=== PATIENT | female | born 1960 ===

== ENCOUNTER 2017-03-19 05:44 | Day surgery (SDC) | payer BC ==
[~2017-03-19] VITALS: Ht 185.4 cm; Wt 108.9 kg
[2017-03-19] VITALS (9 sets, daily range): BP systolic 124–155; BP diastolic 71–83
[~2017-03-19 05:44] MED LIST: ASPIR 8181 MG ORAL; ATORVASTATIN CA20 MG ORAL; LOSARTAN POTASS50 MG ORAL
[2017-03-19] MEDS ORDERED: Zemuron 50mg/5ml Inj IV ONE (07:00)
[2017-03-19] MEDS ORDERED: Sterile Water Irrig 1000ml IRRIG ONE (07:00)
[2017-03-19] MEDS ORDERED: LR 1000ml ONE (07:00)
[2017-03-19] MEDS ORDERED: Midazolam 2mg/2ml Inj ONE (07:00)
[2017-03-19] MEDS ORDERED: fentaNYL 250mcg/5ml ONE (07:00)
[2017-03-19] MEDS ORDERED: Propofol 10mg/ml 20ml IV ONE (07:00)
[2017-03-19] MEDS ORDERED: NS Irrig 1000ml ONE (07:00)
[2017-03-19] MEDS ORDERED: Lidocaine 1% MPF 10mg/ml 5ml ONE (07:00)
[2017-03-19] MEDS ORDERED: Metoclopramide 10mg/2ml Inj ONE (07:00)
[2017-03-19] MEDS ORDERED: Ketorolac 30mg Inj ONE (07:00)
--- NOTE | 2017-03-19 07:07 | Anethesia Preoperative Eval ---
Anesthesia Pre-op PMH/ROS General Date of Evaluation: Mar 19, 2017 Anesthesiologist: Fan ASA Score: ASA 2 Mallampati Score Class I : Soft palate, uvula, fauces, pillars visible Class II: Soft palate, uvula, fauces visible Class III: Soft palate, base of uvula visible Class IV: Only hard plate visible Mallampati Classification: Class III Surgeon: Lc Diagnosis: Cholecystitis Surgical Procedure: Laparoscopic cholecystectomy Anesthesia History: none Family History: no anesthesia problems Allergies: Coded Allergies: No Known Allergies (Unverified , 03/18/17) Medications: see eMAR Past Medical History Cardiovascular: Reports: HTN, other - HLD, Denies: CAD, [place], arrhythmia, valve dz Pulmonary: Denies: COPD, KELLY, asthma, other Gastrointestinal/Genitourinary: Reports: GERD, Denies: CRI, ESRD, other Neurologic/Psychiatric: Denies: CVA, TIA, dementia, depression/anxiety, other Endocrine: Denies: DM, hypothyroidism, other, steroids HEENT: Denies: [place] (L), [place] (R), cataract (L), cataract (R), glaucoma, other Hematology/Immune: Denies: DVT, anemia, bleeding disorder, other Musculoskeletal/Integumentary: Denies: DDD, DJD, OA, RA, edema, other Other: obesity - morbid PSxH Narrative: right breast sx, VICKY Anesthesia Pre-op Phys. Exam Physician Exam Last Vital Signs Date Time Temp Pulse Resp B/P Pulse Ox O2 Delivery O2 Flow Rate FiO2 03/19/17 06:10 97.3 61 20 147/83 96 Room Air Constitutional: NAD Cardiovascular: RRR Respiratory: CTA Airway Exam Mallampati Score: Class III MO: limited ROM: limited Anesthesia Pre-op A/P Labs see chart Studies Pre-op Studies: EKG - sr Risk Assessment & Plan Assessment: ASA II Plan: GA Status Change Before Surgery: No Pre-Antibiotics Drug: Ancef 2g Given Within 1 Hr of Incision: MACIE Christiansen M.D. Mar 19, 2017 07:07
[2017-03-19] MEDS ORDERED: Bupivacaine w/Epi 0.5% 30ml Vial INJ ONE (07:12)
[2017-03-19] MEDS ORDERED: Iothalamate Meglumine 60% 30ML INJ ONE (07:12)
--- NOTE | 2017-03-19 07:17 | Pre-Procedure Note/Attestation ---
Pre-Procedure Note/Attestation Complete Prior to Procedure Procedure Narrative: laparoscopic cholecystectomy, possible open Indications for Procedure Pre-Operative Diagnosis: cholelithiasis, biliary colic, chronic cholecystitis Attestation I attest that I discussed the nature of the procedure; its benefits; risks and complications; and alternatives (and the risks and benefits of such alternatives ), prior to the procedure, with the patient (or the patient's legal insurance claim representative). I attest that, if there was a reasonable possibility of needing a blood transfusion, the patient (or the patient's legal insurance claim representative) was given the [facility] standardized written summary, pursuant to the Jatin Dieter Blood Safety Act ([place] Health and Safety Code # 1645, as amended). I attest that I re-evaluated the patient just prior to the surgery and that there has been no change in the patient's H&P, except as documented below: JEAN MARIE FOSTER Mar 19, 2017 07:17
--- NOTE | 2017-03-19 07:26 | Immediate Post-Op Evaluation ---
Immediate Post-Op Evalulation Immediate Post-Op Evalulation Procedure: Laparoscopic cholecystectomy Date of Evaluation: Mar 19, 2017 Time of Evaluation: 08:39 IV Fluids: 800 Blood Products: 0 Estimated Blood Loss: 0 Urinary Output: 0 Blood Pressure Systolic: 155 Blood Pressure Diastolic: 71 Pulse Rate: 82 Respiratory Rate: 16 O2 Sat by Pulse Oximetry: 96 Temperature (Fahrenheit): 97 Pain Score (1-10): 0 Nausea: No Vomiting: No Complications 0 Patient Status: awake, reacts, patent, none Hydration Status: adequate Drug: Ancef 2g Given Within 1 Hr of Incision: Yes Time Given: 07:30 MACIE PORTER M.D. Mar 19, 2017 07:26
[2017-03-19] MEDS ORDERED: LR 1000ml 1,000 ML IVLG SCH (07:27)
--- NOTE | 2017-03-19 07:27 | 48 Hour Post Anesthesia Eval ---
Post Anesthesia Evaluation Procedure: Laparoscopic cholecystectomy Date of Evaluation: Mar 19, 2017 Time of Evaluation: 09:46 Blood Pressure Systolic: 132 0: 76 Pulse Rate: 66 Respiratory Rate: 18 O2 Sat by Pulse Oximetry: 99 Airway: patent Nausea: No Vomiting: No Pain Intensity: 0 Hydration Status: adequate Cardiopulmonary Status: at [place] Mental Status/LOC: patient returned to baseline Post-Anesthesia Complications: 0 Follow-up care needed: ready to discharge MACIE PORTER M.D. Mar 19, 2017 07:27
[2017-03-19] MEDS ORDERED: DiphenhydrAMINE 50mg/ml Inj IVP PRN (07:30)
[2017-03-19] MEDS ORDERED: Hydromorphone 0.5mg/0.5ml inj IVP PRN (07:30)
[2017-03-19] MEDS ORDERED: Metoclopramide 10mg/2ml Inj IVP PRN (07:30)
[2017-03-19] MEDS ORDERED: fentaNYL 100 mcg/2 mL IV PRN (07:30)
[2017-03-19] MEDS ORDERED: Midazolam 2mg/2ml Inj IVP PRN (07:30)
[2017-03-19] MEDS ORDERED: Ketorolac 30mg Inj IV PRN (07:30)
[2017-03-19] MEDS ORDERED: LORazepam Inj 2mg/ml 1ml IV PRN (07:30)
--- NOTE | 2017-03-19 11:16 | Operative Note - Dictated ---
DATE OF OPERATION: 03/19/2017 SURGEON: Tulio Platt M.D. ENGINEER SERGEANT: Fazal Lowery M.D. ANESTHESIOLOGIST: Braulio Chavira M.D. ANESTHESIA: General endotracheal tube. PREOPERATIVE DIAGNOSIS: Cholelithiasis and chronic cholecystitis with biliary colic attacks recently. POSTOPERATIVE DIAGNOSIS: Cholelithiasis and chronic cholecystitis with biliary colic attacks recently. NAME OF OPERATION: Laparoscopic cholecystectomy. FINDINGS AND INDICATIONS: The patient is a very pleasant 56-year-old female with a history of intermittent abdominal pain in the epigastric and right upper quadrant, has been going on for a couple of years and she knew she had gallstones, but because of the crescendo symptoms, she came to see me for evaluation and gallbladder removal. I discussed the indications risks, benefits, possible complications, etc. and the patient consented to the operation. At the time of surgery a, indeed a slightly thickened gallbladder wall was found with a large stone approximately 2-1/2 cm in length and minimal adhesions of the gallbladder neck to the liver area, but no other sequela. The procedure was done uneventfully as described. DESCRIPTION OF PROCEDURE: With the patient lying in the supine position on the operating table, under general anesthesia with entire abdominal region, prepped and draped in usual sterile fashion with Betadine, an infraumbilical stab incision was made. The Veress needle was introduced and 4.5 liters of CO2 insufflated. The incision was then enlarged and a 5 mm trocar advanced through which a laparoscope was placed visualizing the above findings. A separate subxiphoid 11 mm trocar was placed and two 5-mm trocars in the right mid abdomen and in the right upper quadrant in which gallbladder fundus and body were placed on traction. Retrograde dissection of the gallbladder was then done by carefully dissecting it. The gallbladder off the liver bed by blunt and sharp means obtaining hemostasis with the cautery. The specimen was then removed through the subxiphoid incision and sent to pathology. The subhepatic and subdiaphragmatic areas were then irrigated with ample amounts of normal saline. Hemostasis was double checked, which was adequate with the cautery and then the trocars were removed after deflating the CO2. Incisions were closed with 0 Vicryl fascial sutures and 4-0 Vicryl subcuticular sutures and Steri-Strips. Marcaine 0.5% with epinephrine 25 mL was injected for long-acting local anesthetic. The patient tolerated the procedure well. Estimated blood loss was less than 5 mL. Sponge and needle counts were correct. She went to the recovery room in stable condition. Tulio Platt M.D. DR: JEFF JOB#: [id number] CC:
--- NOTE | 2017-03-22 14:01 | Brief Operative Note ---
Immediate Post Operative Note Operative Note Pre-op Diagnosis: cholelithiasis, biliary colic, chronic cholecystitis Post-op Diagnosis: same as pre-op Surgeon: keila Anesthesiologist: kurtis Specimen: yes - GB Complications: none Condition: stable Estimated Blood Loss: minimal Drains: none Implant(s) used?: No JEAN MARIE FOSTER Mar 22, 2017 14:01
== END 2017-03-19 10:45 | disposition home or self-care (01) ==
LOC: SUR 05:44
DX: K80.10 Calculus of gallbladder with chronic cholecystitis without obstruction (principal); E78.5 Hyperlipidemia, unspecified; K21.9 Gastro-esophageal reflux disease without esophagitis; I10 Essential (primary) hypertension; E66.01 Morbid (severe) obesity due to excess calories; Z68.31 Body mass index [BMI] 31.0-31.9, adult; F17.210 Nicotine dependence, cigarettes, uncomplicated; Z90.710 Acquired absence of both cervix and uterus
CPT/HCPCS: 47562; J1885; J2250; J2405; J2704; J2765; J3010; J7120; 94003; 94150